=== PATIENT | male | born 1960 | race Caucasian/White ===

== ENCOUNTER 2017-10-09 15:49 | Day surgery (SDC) | payer BC ==
[~2017-10-09 15:49] MED LIST: Dexamethasone 20 MG/5 ML VIAL ONE; Ketorolac Tromethamine 30 MG/ML VIAL ONE; Lidocaine 1% PF 5 ML VIAL ONE; Ondansetron HCl/PF 4 MG/2 ML Vial ONE; PROPOFOL 200 MG/20 ML VIAL ONE; ePHEDrine/0.9% NaCl/PF SYRINGE 50 mg/10 ml ONE
[2017-10-09] MEDS ORDERED: Phenylephrine 2.5% Ophth Soln 5 ML BOT ONE (16:01)
[2017-10-09] MEDS ORDERED: Cyclopentolate 1% Opth Drop 2 ML BOT ONE (16:01)
[2017-10-09] MEDS ORDERED: Fentanyl 100 MCG/2 ML VIAL ONE (18:18)
[2017-10-09] MEDS ORDERED: Midazolam HCl 2 mg/2 ml Vial ONE (18:34)
[2017-10-09] MEDS ORDERED: EPINEPHrine 1 MG/10 ML Abboject SYRINGE ONE (18:53)
[2017-10-09] MEDS ORDERED: EPINEPHrine 1 MG/ML AMP ONE (18:53)
--- NOTE | 2017-10-10 00:52 | OP ---
DATE OF PROCEDURE: 10/09/2017 PREOPERATIVE DIAGNOSIS: Rhegmatogenous retinal detachment, left eye. POSTOPERATIVE DIAGNOSIS: Rhegmatogenous retinal detachment, left eye. PROCEDURES: Pars plana vitrectomy and retinal detachment repair, left eye. SURGEON: Dean Mauro MD ANESTHESIA: General endotracheal anesthesia. COMPLICATIONS: None. PROCEDURE IN DETAIL: The patient was identified in the preoperative holding area. Appropriate infor med consent for the planned surgical procedure on the left eye had been obtained. The patient was tr ansported to the operative suite. Appropriate cardiopulmonary monitoring was established. General e ndotracheal anesthesia was initiated. Retrobulbar block was placed. Eye was prepped and draped in u sual sterile manner for ophthalmic surgery in the left eye. Lid speculum was placed in the left eye. 25-gauge trocars were placed in conjunctiva and sclera supratemporally, inferotemporally, and supra nasally. Infusion line was placed inferotemporally. Light pipe and vitreous cutter were inserted in to the eye. Core vitrectomy was performed. Vitreous base dissection was performed 360 degrees using wide-field viewing system. Posterior drain retinotomy was created of the inferotemporal arcade. Co mplete air-fluid exchange was performed. 360 laser was placed using endolaser delivery device. A 28 % sulfur hexafluoride gas was infused into the eye. Trocars were removed. Sclerotomy was suture roshni sed. Retrobulbar Kenalog and subconjunctival Ancef were placed. Atropine antibiotic ointment was pl aced. Eye was patched and shielded. The patient was taken to postoperative recovery unit in good co ndition having suffered no immediate perioperative complications. The patient was advised to positio n left side down, and follow up in the morning with Dr. Mauro.
== END 2017-10-09 21:06 | disposition home or self-care (01) ==
LOC: SDC 15:49
PROVIDERS: ATTEND Ophthalmology Retina Specialist
PROC: 08T53ZZ Resection of Left Vitreous, Percutaneous Approach (ICD-10-PCS; principal; 2017-10-09)
DX: H33.022 Retinal detachment with multiple breaks, left eye (principal)
CPT/HCPCS: 67025; J0171; J1100; J1885; J2001; J2250; J2405; J2704; J3010